=== PATIENT | female | born 1965 | race Caucasian/White ===

== ENCOUNTER 2016-10-15 10:42 | Observation (INO) | payer OTHER ==
[2016-10-15] MEDS ORDERED: SODIUM CHLORIDE 0.9% 1,000 ML IV STA ×2 (11:50→14:08)
[2016-10-15] MEDS ORDERED: MORPHINE SULFATE 4 MG/ML SYRINGE IV STA (11:50)
[2016-10-15] MEDS ORDERED: ASPIRIN 81 MG CHEW PO STA (11:50)
[2016-10-15] MEDS ORDERED: METOCLOPRAMIDE 5 MG/ML 2 ML VIAL IVP STA (11:50)
--- NOTE | 2016-10-15 12:18 | ED ---
Abdominal Pain HPI - General Source: patient, family, RN notes reviewed Mode of arrival: wheelchair Limitations: no limitations <Rhina Dickson - Last Filed: 10/15/16 14:38> <Vic Rahman - Last Filed: 10/15/16 16:06> - General Chief Complaint: Abdominal Pain Stated Complaint: vomiting x 24 hours Time Seen by Provider: 10/15/16 11:43 - History of Present Illness Initial Comments: 51-year-old female presents emergency department with chief complaint of abdominal pain nausea and vomiting. Patient states this started last night. She also having got this terrible pain she became sweaty and throughout. Patient states the pain started in her left side of her abdomen. Patient states she has a headache diarrhea. Patient went to the hospital and she was discharged home. She denies any fever or chills. They state that she was told she had gastroenteritis. Patient states that she is concerned because she just continues to have this pain and she is not feeling well so she thought that she should be seen. Patient does not see the doctor but denies any health problems. Patient denies any recent fever, chills, shortness of breath, chest pain, back pain, numbness or tingling, dysuria or hematuria, constipation or diarrhea, headaches or visual changes, or any other current symptoms. (Rhina Dickson) - Related Data Home Medications Medication Instructions Recorded Confirmed Ibuprofen [Advil] 400 mg PO DAILY 10/15/16 10/15/16 Allergies Allergy/AdvReac Type Severity Reaction Status Date / Time No Known Allergies Allergy Verified 10/15/16 12:05 Review of Systems ROS Other: All systems not noted in ROS Statement are negative. <Rhina Dickson - Last Filed: 10/15/16 14:38> ROS Other: All systems not noted in ROS Statement are negative. <Vic Rahman - Last Filed: 10/15/16 16:06> ROS Statement: Those systems with pertinent positive or pertinent negative responses have been documented in the HPI. Past Medical History History of Any Multi-Drug Resistant Organisms: None Reported Past Surgical History: No Surgical Hx Reported Past Psychological History: No Psychological Hx Reported Smoking Status: Current every day smoker Past Alcohol Use History: None Reported Past Drug Use History: None Reported <Rhina Dickson - Last Filed: 10/15/16 14:38> General Exam Limitations: no limitations <Rhina Dickson - Last Filed: 10/15/16 14:38> <Vic aRhman - Last Filed: 10/15/16 16:06> - General Exam Comments Initial Comments: General: The patient is awake and alert, in no distress, and does not appear acutely ill. Eye: Pupils are equal, round and reactive to light, extra-ocular movements are intact; there is normal conjunctiva bilaterally. No signs of icterus. Ears, nose, mouth and throat: There are moist mucous membranes and no oral lesions. Neck: The neck is supple, there is no tenderness. Cardiovascular: There is a regular rate and rhythm. No murmur, rub or gallop is appreciated. Respiratory: Lungs are clear to auscultation, respirations are non-labored, breath sounds are equal. No wheezes, stridor, rales, or rhonchi. Gastrointestinal: Soft, non-distended, quadrant tenderness of the abdomen without masses or organomegaly noted. There is no rebound or guarding present. No CVA tenderness. Bowel sounds are unremarkable. Back: There is no tenderness to palpation in the midline. There is no obvious deformity. No rashes noted. Musculoskeletal: Normal ROM, no tenderness, There is no pedal edema. There is no calf tenderness or swelling. Sensation intact. Pulses equal bilaterally 2+. Neurological: CN II-XII intact, There are no obvious motor or sensory deficits. Coordination appears grossly intact. Speech is normal. Skin: Skin is warm and dry and no rashes or lesions are noted. Psychiatric: Cooperative, appropriate mood & affect, normal judgment. (Rhina Dickson) Medical Decision Making - Lab Data Result diagrams: 10/15/16 12:00 10/15/16 12:00 - EKG Data -: EKG Interpreted by Me <Rhina Dickson - Last Filed: 10/15/16 14:38> - Lab Data Result diagrams: 10/15/16 12:00 10/15/16 12:00 <Vic Rahman - Last Filed: 10/15/16 16:06> - Medical Decision Making 51-year-old female presents to emergency room chief complaint of abdominal pain nausea vomiting. This time the patient continues to have the abdominal pain. Results returned the were reviewed. This time we will admit the patient to have her evaluated. This is discussed with the patient and family and they're in agreement. (Rhina Dickson) Medical decision making. I examine the patient at bedside. I reviewed her history. Yesterday the patient was at [facility] had a CAT scan which is nonspecific. That time white count was 16,000. The patient was discharged at noon yesterday now 24 hours later she continues to vomit with left upper quadrant discomfort. White count this time is 14.9. Urine shows positive ketones. Patient's kidneys are working well glucose 106 potassium 3.9. Patient and family reports that she had similar episode started proximal one month ago with severe left upper quadrant pain nausea vomiting in bed for 2 days and then it subsides. Patient denies any change in the color of the vomit which is bilious in color no change in color stool color of urine. Patient's bilirubin mildly elevated 1.4. Patient has discomfort with palpation to the left upper quadrant no palpable masses appreciated. Mild referred pain to the left upper quadrant. Patient be admitted for evaluation. Dr. Rahman I discussed the case with Dr. Bhakta, on-call for the [facility]. He accepts the patient for evaluation. Dr. Rahman (Vic Rahman) - Lab Data Lab Results 10/15/16 10/15/16 10/15/16 Range/Units 12:00 12:00 12:00 WBC 14.9 H (3.8-10.6) k/uL RBC 4.85 (3.80-5.40) m/uL Hgb 15.1 (11.4-16.0) gm/dL Hct 43.1 (34.0-46.0) % MCV 89.0 (80.0-100.0) fL MCH 31.2 (25.0-35.0) pg MCHC 35.1 (31.0-37.0) g/dL RDW 12.6 (11.5-15.5) % Plt Count 306 (150-450) k/uL Neutrophils % 79 % Lymphocytes % 11 % Monocytes % 7 % Eosinophils % 0 % Basophils % 0 % Neutrophils # 11.7 H (1.3-7.7) k/uL Lymphocytes # 1.7 (1.0-4.8) k/uL Monocytes # 1.1 H (0-1.0) k/uL Eosinophils # 0.0 (0-0.7) k/uL Basophils # 0.0 (0-0.2) k/uL PT (9.0-12.0) sec INR (<1.1) APTT (22.0-30.0) sec Sodium 140 (137-145) mmol/L Potassium 3.9 (3.5-5.1) mmol/L Chloride 104 (98-107) mmol/L Carbon Dioxide 22 (22-30) mmol/L Anion Gap 14 mmol/L BUN 14 (7-17) mg/dL Creatinine 0.58 (0.52-1.04) mg/dL Est GFR (MDRD) Af Amer >60 (>60 ml/min/1.73 sqM) Est GFR (MDRD) Non-Af >60 (>60 ml/min/1.73 sqM) Glucose 106 H (74-99) mg/dL Calcium 10.3 H (8.4-10.2) mg/dL Magnesium 1.6 (1.6-2.3) mg/dL Total Bilirubin 1.0 (0.2-1.3) mg/dL AST 31 (14-36) U/L ALT 27 (9-52) U/L Alkaline Phosphatase 87 (38-126) U/L Total Creatine Kinase 188 H (30-135) U/L CK-MB (CK-2) 0.9 (0.0-2.4) ng/mL CK-MB (CK-2) Rel Index 0.5 Troponin I 0.019 (0.000-0.034) ng/mL Total Protein 7.2 (6.3-8.2) g/dL Albumin 4.4 (3.5-5.0) g/dL Amylase 64 (30-110) U/L Lipase 74 (23-300) U/L Urine Color Urine Appearance (Clear) Urine pH (5.0-8.0) Ur Specific Otis (1.001-1.035) Urine Protein (Negative) Urine Glucose (UA) (Negative) Urine Ketones (Negative) Urine Blood (Negative) Urine Nitrite (Negative) Urine Bilirubin (Negative) Urine Urobilinogen (<2.0) mg/dL Ur Leukocyte Esterase (Negative) Urine RBC (0-5) /hpf Urine WBC (0-5) /hpf Ur Squamous Epith Cells (0-4) /hpf Urine Bacteria (None) /hpf Urine Mucus (None) /hpf 10/15/16 10/15/16 Range/Units 12:00 13:10 WBC (3.8-10.6) k/uL RBC (3.80-5.40) m/uL Hgb (11.4-16.0) gm/dL Hct (34.0-46.0) % MCV (80.0-100.0) fL MCH (25.0-35.0) pg MCHC (31.0-37.0) g/dL RDW (11.5-15.5) % Plt Count (150-450) k/uL Neutrophils % % Lymphocytes % % Monocytes % % Eosinophils % % Basophils % % Neutrophils # (1.3-7.7) k/uL Lymphocytes # (1.0-4.8) k/uL Monocytes # (0-1.0) k/uL Eosinophils # (0-0.7) k/uL Basophils # (0-0.2) k/uL PT 11.0 (9.0-12.0) sec INR 1.1 (<1.1) APTT 21.7 L (22.0-30.0) sec Sodium (137-145) mmol/L Potassium (3.5-5.1) mmol/L Chloride (98-107) mmol/L Carbon Dioxide (22-30) mmol/L Anion Gap mmol/L BUN (7-17) mg/dL Creatinine (0.52-1.04) mg/dL Est GFR (MDRD) Af Amer (>60 ml/min/1.73 sqM) Est GFR (MDRD) Non-Af (>60 ml/min/1.73 sqM) Glucose (74-99) mg/dL Calcium (8.4-10.2) mg/dL Magnesium (1.6-2.3) mg/dL Total Bilirubin (0.2-1.3) mg/dL AST (14-36) U/L ALT (9-52) U/L Alkaline Phosphatase (38-126) U/L Total Creatine Kinase (30-135) U/L CK-MB (CK-2) (0.0-2.4) ng/mL CK-MB (CK-2) Rel Index Troponin I (0.000-0.034) ng/mL Total Protein (6.3-8.2) g/dL Albumin (3.5-5.0) g/dL Amylase (30-110) U/L Lipase (23-300) U/L Urine Color Yellow Urine Appearance Cloudy H (Clear) Urine pH 6.0 (5.0-8.0) Ur Specific Otis 1.024 (1.001-1.035) Urine Protein 3+ H (Negative) Urine Glucose (UA) Negative (Negative) Urine Ketones 4+ H (Negative) Urine Blood Moderate H (Negative) Urine Nitrite Negative (Negative) Urine Bilirubin Negative (Negative) Urine Urobilinogen <2.0 (<2.0) mg/dL Ur Leukocyte Esterase Negative (Negative) Urine RBC 6 H (0-5) /hpf Urine WBC 8 H (0-5) /hpf Ur Squamous Epith Cells 6 H (0-4) /hpf Urine Bacteria Occasional H (None) /hpf Urine Mucus Occasional H (None) /hpf 10/15/16 12:44 normal sinus rhythm 80 bpm, normal axis, no atopy, no S-T depressions or elevations, (Rhina Dickson) Disposition Time of Disposition: 14:35 Decision Date: 10/15/16 Decision Time: 14:35 <Rhina Dickson - Last Filed: 10/15/16 14:38> <Vic Rahman - Last Filed: 10/15/16 16:06> Clinical Impression: Abdominal pain, left upper quadrant, Hypertensive urgency, Nausea, Dehydration , Leukocytosis Disposition: ADMITTED IP TO THIS [facility] Condition: Stable
[2016-10-15 12:36] LABS: Basophils % (A) 0 %; CH 30.8; CHCM 34.6; Eosinophils % (A) 0 %; HCT 43.1 % (34.0-46.0); HDW 2.37; HGB 15.1 gm/dL (11.4-16.0); Luc # (Auto) 0.27; Luc % (Auto) 2; Lymphocytes # (A) 1.7 k/uL (1.0-4.8); Lymphocytes % (A) 11 %; MCH 31.2 pg (25.0-35.0); MCHC 35.1 g/dL (31.0-37.0); Mean Platelet Volume 6.6; Monocytes # (A) 1.1 k/uL (0-1.0); Monocytes % (A) 7 %; Neutrophils # (A) 11.7 k/uL (1.3-7.7); Neutrophils % (A) 79 %; RBC 4.85 m/uL (3.80-5.40); RDW 12.6 % (11.5-15.5); WBC 14.9 k/uL (3.8-10.6); WBC (Perox) 14.98
[2016-10-15 12:43] LABS: INR 1.1 (<1.1)
[2016-10-15 12:51] LABS: ALT 27 U/L (9-52); AST 31 U/L (14-36); Alkaline Phosphatase 87 U/L (38-126); Amylase 64 U/L (30-110); Anion Gap 14 mmol/L; Blood Urea Nitrogen 14 mg/dL (7-17); Calcium 10.3 mg/dL (8.4-10.2); Carbon Dioxide 22 mmol/L (22-30); Chloride 104 mmol/L (98-107); Glucose 106 mg/dL (74-99); Magnesium 1.6 mg/dL (1.6-2.3); Non-African American GFR(MDRD) >60 (>60 ml/min/1.73 sqM); Potassium 3.9 mmol/L (3.5-5.1); Sodium 140 mmol/L (137-145); Total Protein 7.2 g/dL (6.3-8.2)
[2016-10-15 13:03] LABS: Partial Thromboplastin Time 21.7 sec (22.0-30.0)
[2016-10-15 13:14] LABS: Creatine Kinase MB 0.9 ng/mL (0.0-2.4); Troponin I 0.019 ng/mL (0.000-0.034)
[2016-10-15] MEDS ORDERED: VERAPAMIL 2.5 MG/ML 2 ML AMP IVP STA (13:50)
[2016-10-15 13:54] LABS: Appearance,Urine Cloudy (Clear); Bacteria,Urine Occasional /hpf; Bilirubin,Urine Negative (Negative); Glucose,Urine (UA) Negative (Negative); Ketones,Urine 4+ (Negative); Leukocyte Esterase,Urine Negative (Negative); Mucus,Urine Occasional /hpf; Nitrite,Urine Negative (Negative); Particle Count 13580; Protein,Urine 3+ (Negative); RBC,Urine 6 /hpf (0-5); Specific Gravity,Urine 1.024 (1.001-1.035); Squamous Epithelial Cell,Urine 6 /hpf (0-4); UA Billing (MACRO vs. MICRO) MICRO; Urobilinogen,Urine <2.0 mg/dL (<2.0); WBC,Urine 8 /hpf (0-5)
--- NOTE | 2016-10-15 14:03 | XR ---
EXAMINATION TYPE: XR chest 2V DATE OF EXAM: 10/15/2016 12:40 PM COMPARISON: NONE INDICATION: Chest pain upper abdominal pain TECHNIQUE: Single frontal view of the chest is obtained. FINDINGS: The heart size is normal. The pulmonary vasculature is normal. The lungs are clear. IMPRESSION: 1. No acute pulmonary process.
[2016-10-15] MEDS ORDERED: NALOXONE 0.4 MG/ML 1 ML VIAL IV PRN (14:35)
[2016-10-15] MEDS ORDERED: ACETAMINOPHEN TAB 325 MG TAB PO PRN (14:35)
[2016-10-15] MEDS ORDERED: HYDROmorphone 1 MG/ML 1 ML SYRINGE IV PRN (14:35)
[2016-10-15] MEDS ORDERED: hydrALAZINE HCL 20 MG/ML 1 ML VIAL IVP STA (15:28)
[2016-10-15] MEDS: SODIUM CHLORIDE 0.9% 1,000 ML IV SCH (15:34)
[2016-10-15] MEDS ORDERED: LORazepam 2 MG/ML SYRINGE IV STA (15:59)
[2016-10-15 18:11] VITALS: BMI 35.5
[2016-10-15] MEDS: IOHEXOL 350 MG/ML 25 ML BOTTLE (ORAL USE) PO PRN ×2 (18:45→19:57)
[2016-10-15] MEDS: ONDANSETRON 4 MG/2 ML VIAL IVP PRN (18:49)
[2016-10-15] MEDS: ENALAPRILAT 1.25 MG/ML 1 ML VIAL IVP PRN (18:49)
[2016-10-15] MEDS ORDERED: ALPRAZolam 0.25 MG TAB PO PRN (18:59)
[2016-10-15 19:58] LABS: Creatine Kinase MB 1.3 ng/mL (0.0-2.4); Troponin I 0.114 ng/mL (0.000-0.034)
[2016-10-15] MEDS ORDERED: ENOXAPARIN 100 MG/ML SYRINGE SQ STA (20:10)
[2016-10-15] MEDS ORDERED: TEMAZEPAM 15 MG CAP PO PRN (21:00)
--- NOTE | 2016-10-15 21:07 | CT ---
EXAMINATION TYPE: CT abdomen pelvis wo con DATE OF EXAM: 10/15/2016 8:50 PM HISTORY: abdominal pain not further specified per order. CT DLP: 911.1 mGycm. Automated Exposure Control for Dose Reduction was Utilized. TECHNIQUE: CT scan of the abdomen and pelvis is performed with oral but without IV contrast. COMPARISON: NONE FINDINGS: Within the limitations of a non-contrast study, the following observations are made. LUNG BASES: Tiny pericardial effusion is present. LIVER/GB: No significant abnormality is appreciated. PANCREAS: No significant abnormality is seen. SPLEEN: No significant abnormality is seen. ADRENALS: Some thickening to both adrenal glands may reflect benign hyperplasia. KIDNEYS: No renal stones or hydronephrosis is evident bilaterally. BOWEL: Oral contrast reaches level of the transverse colon. There is no suspicious small or large bow el dilatation seen. Normal-appearing appendix is seen from cecum in the right lower quadrant. There a re few diverticula scattered throughout the colon. There is no CT evidence for acute diverticulitis. GENITAL ORGANS: Uterus is anteverted in shape and within normal limits in size. Left ovary is felt no rmal in size on axial image 69. Right ovary is felt normal in size posteriorly on axial image 75. Ind istinct from the superior margin of right uterus there is exophytic projection on image 78 felt to re flect approximately 5 cm subserosal fibroid. This can be confirmed with pelvic ultrasound if desired. LYMPH NODES: No greater than 1cm abdominal or pelvic lymph nodes are appreciated. OSSEOUS STRUCTURES: Mild facet degenerative changes lower lumbar levels are present. OTHER: No signif icant additional abnormality is seen. IMPRESSION: No significant acute finding is seen to account for patient's symptoms.
[2016-10-15] MEDS: PANTOPRAZOLE 40 MG/10 ML VIAL IVP SCH (21:16)
[2016-10-16 00:43] LABS: Creatine Kinase MB 1.4 ng/mL (0.0-2.4)
[2016-10-16] MEDS: SODIUM CHLORIDE 0.9% 1,000 ML IV SCH ×2 (00:45→08:48)
[2016-10-16 07:12] LABS: Basophils % (A) 0 %; CH 30.3; CHCM 33.7; Eosinophils % (A) 0 %; HCT 41.5 % (34.0-46.0); HDW 2.32; Luc # (Auto) 0.34; Luc % (Auto) 3; Lymphocytes # (A) 2.5 k/uL (1.0-4.8); Lymphocytes % (A) 22 %; MCH 30.5 pg (25.0-35.0); MCHC 33.8 g/dL (31.0-37.0); MCV 90.2 fL (80.0-100.0); Mean Platelet Volume 6.5; Monocytes % (A) 9 %; Neutrophils # (A) 7.6 k/uL (1.3-7.7); Neutrophils % (A) 66 %; RBC 4.61 m/uL (3.80-5.40); RDW 12.6 % (11.5-15.5); WBC 11.5 k/uL (3.8-10.6); WBC (Perox) 11.54
[2016-10-16 07:36] LABS: ALT 30 U/L (9-52); AST 24 U/L (14-36); Alkaline Phosphatase 73 U/L (38-126); Anion Gap 11 mmol/L; Blood Urea Nitrogen 16 mg/dL (7-17); Calcium 9.8 mg/dL (8.4-10.2); Carbon Dioxide 23 mmol/L (22-30); Chloride 105 mmol/L (98-107); Glucose 93 mg/dL (74-99); Non-African American GFR(MDRD) >60 (>60 ml/min/1.73 sqM); Potassium 3.7 mmol/L (3.5-5.1); Sodium 139 mmol/L (137-145); Total Bilirubin 0.9 mg/dL (0.2-1.3); Total Protein 6.2 g/dL (6.3-8.2)
--- NOTE | 2016-10-16 08:01 | HP ---
DATE OF ADMISSION: DATE OF SERVICE: 10/15/2016 Chief complaints are abdominal pain and vomiting. HISTORY OF PRESENT ILLNESS: This 51-year-old woman with a past medical history of no significant medical issues being followed with no primary physician apparently living in [facility]. The patient was visiting her mother, who is living in [place]. The patient started vomiting about a month ago. Patient apparently had multiple episodes of vomiting and some diarrhea also. The patient went to [facility] and multiple evaluations with CAT scan did not show any acute abnormality. The patient was thought to have acute gastroenteritis., but the patient continued with nausea, vomiting and last night also patient was unable to keep anything down. The patient was sweaty and patient had some diarrhea. Because of multiple complex medical issues, the patient was taken to [facility] and admitted for further evaluation and treatment. There is no history of any fever, rigors or seizures. No history of headache, loss of consciousness or seizures. Admission labs showed WBC 14.9 and calcium was 10.3. UA shows 4+ ketones. Chest x-ray was done on admission, which showed no acute abnormality. EKG showed normal sinus rhythm. On admission, the patient had elevated blood pressure for which hydralazine was given, which probably resulted in allergic reaction according to the staff. The patient was admitted for further evaluation and treatment. There is no history of any fever, rigors, chills. NO history of headache, loss of consciousness or seizures. PAST MEDICAL HISTORY: No history of significant medical issues. MEDICATIONS: Ibuprofen 400 daily. ALLERGIES: HYDRALAZINE. FAMILY HISTORY: No history of heart disease or strokes in the family. SOCIAL HISTORY: Patient works as housecleaning. Smoking on a daily. Occasional alcohol intake. REVIEW OF SYSTEMS: ENT: No diminishing hearing or diminished vision. CARDIOVASCULAR: No angina. RESPIRATORY: No cough or hemoptysis. GI: As mentioned earlier. : No dysuria. NERVOUS SYSTEM: No numbness or weakness. ALLERGIES/IMMUNOLOGY: No asthma. MUSCULOSKELETAL: As mentioned earlier. HEMATOLOGY/ONCOLOGY: No history of anemia. ENDOCRINE: No history of diabetes or hypothyroidism. CONSTITUTIONAL: As mentioned earlier. DERMATOLOGY: Negative. RHEUMATOLOGY: Negatived. PSYCHIATRY: As mentioned earlier. PHYSICAL EXAMINATION: The patient is alert and oriented x3. The pulse is 133, blood pressure 177/72, respirations 15, temperature 99.3, pulse ox 95% on 2 L. HEENT: Conjunctivae normal. Oral mucosa moist. NECK: No jugular venous distention. No carotid bruit. No lymph node enlargement. CARDIOVASCULAR: S1 and S2, muffled. No S3, no S4. RESPIRATORY: Breath sounds diminished at the bases. No rhonchi, no crackles. ABDOMEN: Soft, mild diffuse discomfort to palpation, otherwise, obese, no mass palpable. No hepatosplenomegaly. No ascites. LEGS: No edema, no swelling. NERVOUS SYSTEM: Higher functions as mentioned. Moves all 4 limbs. No motor or sensory deficits LYMPHATICS: No lymphadenopathy of neck, axillae or groin. SKIN: No ulcers, rashes or bleeding. Labs are at this time WBC 14.9. INR is 1.1. Glucose 106. Calcium is 10.3. UA noted. ASSESSMENT: 1. Abdominal pain, nausea, possible acute gastritis and gastroenteritis. 2. Accelerated hypertension and hypertensive urgency. 3. Increased WBC, possibly reactive. 4. Hypercalcemia. 5. Dehydration. 6. Increased creatine kinase. 7. Rule out urinary tract infection. 8. History of nicotine dependence. 9. Obesity, body mass index of 34.5. 10. FULL CODE. RECOMMENDATIONS AND DISCUSSION: This 51-year-old woman who presented with multiple complex medical issues, will monitor the patient closely. Continue the current medications. Continue symptomatic treatment. Will keep the patient on clear liquids, Protonix IV b.i.d. otherwise, symptomatic treatment. has been given and Norvasc will be started on p.o. basis Other than that, I will also recommend repeat CAT scan of the abdomen and pelvis and continue to monitor. Otherwise, because of persistent symptoms, surgery has been consulted. Guarded prognosis because of multiple complex medical issues. Further recommendations to follow. Repeat labs are arranged. Will obtain the cultures and continue to monitor as well. DVT prophylaxis. Discussed with the patient, understands and agrees. JOMAR
[2016-10-16] MEDS: HYDROmorphone 1 MG/ML 1 ML SYRINGE IV PRN ×2 (08:46→13:20)
[2016-10-16] MEDS: ONDANSETRON 4 MG/2 ML VIAL IVP PRN ×2 (08:46→16:42)
[2016-10-16] MEDS: PANTOPRAZOLE 40 MG/10 ML VIAL IVP SCH ×2 (08:50→20:05)
[2016-10-16] MEDS ORDERED: amLODIPine 2.5 MG TAB PO SCH (09:00)
[2016-10-16] MEDS: ENALAPRILAT 1.25 MG/ML 1 ML VIAL IVP PRN ×2 (09:04→16:43)
[2016-10-16] MEDS ORDERED: amLODIPine 2.5 MG TAB PO ONE ×2 (12:30→13:30)
[2016-10-16] MEDS ORDERED: SODIUM CHLORIDE 0.9% 1,000 ML IV SCH (12:45)
[2016-10-16] MEDS: METOPROLOL TARTRATE 50 MG TAB PO SCH (13:17)
--- NOTE | 2016-10-16 13:36 | P.GSCN ---
History of Present Illness Consult date: 10/16/16 Reason for Consult: Abdominal pain History of present illness: The patient states that she has had mild left upper quadrant crampy abdominal pain. She just had a bowel movement and is passing flatus. She states her pain is 8 out of 10. Review of Systems - Constitutional Reports as per HPI Past Medical History Past Medical History: No Reported History History of Any Multi-Drug Resistant Organisms: None Reported Past Surgical History: No Surgical Hx Reported Past Psychological History: No Psychological Hx Reported Smoking Status: Current every day smoker Past Alcohol Use History: None Reported Past Drug Use History: None Reported - Past Family History Father Family Medical History: No Reported History Mother Family Medical History: No Reported History Medications and Allergies Home Medications Medication Instructions Recorded Confirmed Type Ibuprofen [Advil] 400 mg PO DAILY 10/15/16 10/15/16 History Allergies Allergy/AdvReac Type Severity Reaction Status Date / Time hydralazine AdvReac Rapid Verified 10/15/16 17:23 Heart Rate Surgical - Exam Vital Signs Temp Pulse Resp BP Pulse Ox 98.8 F 84 16 221/83 99 10/15/16 11:28 10/15/16 11:28 10/15/16 11:28 10/15/16 11:28 10/15/16 11:28 - General well developed, no distress - Eyes PERRL - ENT normal pinna - Neck no masses - Respiratory normal expansion - Cardiovascular Rhythm: regular - Abdomen Abdomen soft. There is minimal left upper quadrant pain. There is no rebound or guarding. Abdomen: soft Results - Labs 10/16/16 06:22 10/16/16 06:22 Abnormal Lab Results - Last 24 Hours (Table) 10/15/16 10/15/16 10/16/16 Range/Units 19:01 23:52 05:40 WBC (3.8-10.6) k/uL Total Creatine Kinase 186 H 146 H (30-135) U/L Troponin I 0.114 H* (0.000-0.034) ng/mL Total Protein (6.3-8.2) g/dL U Cannabinoids Screen Positive H (Negative) ng/mL 10/16/16 10/16/16 10/16/16 Range/Units 06:22 06:22 06:22 WBC 11.5 H (3.8-10.6) k/uL Total Creatine Kinase (30-135) U/L Troponin I 0.112 H* (0.000-0.034) ng/mL Total Protein 6.2 L (6.3-8.2) g/dL U Cannabinoids Screen (Negative) ng/mL Diabetes panel 10/16/16 Range/Units 06:22 Sodium 139 (137-145) mmol/L Potassium 3.7 (3.5-5.1) mmol/L Chloride 105 (98-107) mmol/L Carbon Dioxide 23 (22-30) mmol/L BUN 16 (7-17) mg/dL Creatinine 0.66 (0.52-1.04) mg/dL Glucose 93 (74-99) mg/dL Calcium 9.8 (8.4-10.2) mg/dL AST 24 (14-36) U/L ALT 30 (9-52) U/L Alkaline Phosphatase 73 (38-126) U/L Total Protein 6.2 L (6.3-8.2) g/dL Albumin 3.7 (3.5-5.0) g/dL Calcium panel 10/16/16 Range/Units 06:22 Calcium 9.8 (8.4-10.2) mg/dL Albumin 3.7 (3.5-5.0) g/dL Pituitary panel 10/16/16 Range/Units 06:22 Sodium 139 (137-145) mmol/L Potassium 3.7 (3.5-5.1) mmol/L Chloride 105 (98-107) mmol/L Carbon Dioxide 23 (22-30) mmol/L BUN 16 (7-17) mg/dL Creatinine 0.66 (0.52-1.04) mg/dL Glucose 93 (74-99) mg/dL Calcium 9.8 (8.4-10.2) mg/dL Adrenal panel 10/16/16 Range/Units 06:22 Sodium 139 (137-145) mmol/L Potassium 3.7 (3.5-5.1) mmol/L Chloride 105 (98-107) mmol/L Carbon Dioxide 23 (22-30) mmol/L BUN 16 (7-17) mg/dL Creatinine 0.66 (0.52-1.04) mg/dL Glucose 93 (74-99) mg/dL Calcium 9.8 (8.4-10.2) mg/dL Total Bilirubin 0.9 (0.2-1.3) mg/dL AST 24 (14-36) U/L ALT 30 (9-52) U/L Alkaline Phosphatase 73 (38-126) U/L Total Protein 6.2 L (6.3-8.2) g/dL Albumin 3.7 (3.5-5.0) g/dL Assessment and Plan Plan: The patient's CAT scan is within normal in its. She has some mild left upper quadrant pain. The patient be observed. Hopefully after her bowel movement her pain is improved. We will follow with you
--- NOTE | 2016-10-16 14:04 | P.CRDCN ---
History of Present Illness Consult date: 10/16/16 Requesting physician: Verónica Bhakta Consult reason: hypertension Chief complaint: Abdominal pain and vomiting History of present illness: This is a 51-year-old female admitted to the hospital with symptoms of persistent nausea vomiting and abdominal discomfort. Apparently the patient had been at [facility] with similar symptoms, a CT of the abdomen had been performed there which did not reveal any significant findings. This information was collected from the patient and her family. We will get records from [facility]. Cardiology consultation was requested because of uncontrolled hypertension as well as mild troponin abnormality. Patient denies having any chest discomfort. Chest x-ray did not reveal any acute pulmonary process. EKG shows normal sinus rhythm with no acute changes. CAT scan of the abdomen and pelvis performed here did not reveal any significant acute findings. Laboratory data was reviewed, white blood cell count on admission 14.9, 11.5 this morning. Hemoglobin 14.0, potassium 3.7, BUN 16, creatinine 0.6. Troponins 0.019, 0.114, 0.112. Urine screen is positive for cannabinoids. Serum alcohol level less than 10 influenza A and B- . I pressure on arrival to the emergency room 221/83 with a heart rate in the 80s, 99% on room air. Blood pressure this morning 190/100 with a heart rate in the 80s. At the time of our examination, patient continues to complain of abdominal discomfort, continues to have vomiting. He is currently waiting to be evaluated by surgical services. Past Medical History Past Medical History: No Reported History History of Any Multi-Drug Resistant Organisms: None Reported Past Surgical History: No Surgical Hx Reported Past Psychological History: No Psychological Hx Reported Smoking Status: Current every day smoker Past Alcohol Use History: None Reported Past Drug Use History: None Reported - Past Family History Father Family Medical History: No Reported History Mother Family Medical History: No Reported History Medications and Allergies Home Medications Medication Instructions Recorded Confirmed Type Ibuprofen [Advil] 400 mg PO DAILY 10/15/16 10/15/16 History Allergies Allergy/AdvReac Type Severity Reaction Status Date / Time hydralazine AdvReac Rapid Verified 10/15/16 17:23 Heart Rate Physical Exam Vitals: Vital Signs Temp Pulse Pulse Resp BP BP Pulse Ox 10/16/16 10:39 190/100 10/16/16 08:00 99.0 F 81 16 220/108 95 10/16/16 04:00 98.3 F 99 16 144/72 98 10/16/16 00:00 98.4 F 100 16 109/58 96 10/15/16 21:04 98.7 F 124 H 16 176/83 96 10/15/16 18:08 98 F 120 H 17 177/80 98 10/15/16 17:49 99.5 F 127 H 16 185/88 97 10/15/16 17:12 138 H 14 179/84 96 10/15/16 16:45 99.3 F 133 H 15 177/72 95 10/15/16 16:30 134 H 16 184/83 96 10/15/16 15:55 114 H 16 183/83 96 10/15/16 15:40 199/92 10/15/16 15:22 84 16 201/83 98 Intake and Output 10/15/16 10/16/16 10/16/16 22:59 06:59 14:59 Intake Total 400 Output Total 200 1000 Balance -200 -600 Intake: Oral 400 Output: Urine 200 1000 Other: Voiding Method Toilet Toilet # Voids 1 # Bowel Movements 0 Weight 99.8 kg 94.6 kg PHYSICAL EXAMINATION: HEENT: Head is atraumatic, normocephalic. Pupils equal, round. Neck is supple. There is no elevated jugular venous pressure. HEART EXAMINATION: Heart S1, S2 normal. No murmur or gallop heard. CHEST EXAMINATION: Lungs are clear to auscultation and precussion. No chest wall tenderness is noted on palpation or with deep breathing. ABDOMEN: Soft, positive left mid and left upper quadrant tenderness on palpation .Bowel sounds are heard. No organomegaly noted. EXTREMITIES: 2+ peripheral pulses with no evidence of peripheral edema and no calf tenderness noted. NEUROLOGIC patient is awake, alert and oriented -3. . Results 10/16/16 06:22 10/16/16 06:22 Cardiac Enzymes 10/15/16 10/15/16 10/16/16 Range/Units 19:01 23:52 06:22 AST 24 (14-36) U/L CK-MB (CK-2) 1.3 1.4 (0.0-2.4) ng/mL Troponin I 0.114 H* (0.000-0.034) ng/mL 10/16/16 Range/Units 06:22 AST (14-36) U/L CK-MB (CK-2) (0.0-2.4) ng/mL Troponin I 0.112 H* (0.000-0.034) ng/mL CBC 10/16/16 Range/Units 06:22 WBC 11.5 H (3.8-10.6) k/uL RBC 4.61 (3.80-5.40) m/uL Hgb 14.0 (11.4-16.0) gm/dL Hct 41.5 (34.0-46.0) % Plt Count 264 (150-450) k/uL Comprehensive Metabolic Panel 10/16/16 Range/Units 06:22 Sodium 139 (137-145) mmol/L Potassium 3.7 (3.5-5.1) mmol/L Chloride 105 (98-107) mmol/L Carbon Dioxide 23 (22-30) mmol/L BUN 16 (7-17) mg/dL Creatinine 0.66 (0.52-1.04) mg/dL Glucose 93 (74-99) mg/dL Calcium 9.8 (8.4-10.2) mg/dL AST 24 (14-36) U/L ALT 30 (9-52) U/L Alkaline Phosphatase 73 (38-126) U/L Total Protein 6.2 L (6.3-8.2) g/dL Albumin 3.7 (3.5-5.0) g/dL Current Medications Generic Name Dose Route Start Last Admin Trade Name Freq PRN Reason Stop Dose Admin Acetaminophen 650 mg 10/15/16 14:35 10/15/16 21:17 Tylenol Tab PO 650 mg Q6HR PRN Administration Mild Pain or Fever > 100.5 Hydrocodone Bitart/Acetaminophen 1 each 10/15/16 14:35 [place] 5-325 PO Q4HR PRN Moderate Pain Alprazolam 0.25 mg 10/15/16 18:59 Xanax PO TID PRN Anxiety Amlodipine Besylate 5 mg 10/16/16 21:00 Norvasc PO BID GUERO Aspirin 81 mg 10/17/16 09:00 Aspirin PO DAILY GUERO Enalaprilat 1.25 mg 10/15/16 15:59 10/16/16 09:04 Vasotec IVP 1.25 mg Q6HR PRN Administration Systolic BP > 160 Hydromorphone HCl 0.5 mg 10/15/16 19:00 10/16/16 13:20 Dilaudid IV 0.5 mg Q3HR PRN Administration Severe Pain Sodium Chloride 1,000 mls @ 50 mls/hr 10/16/16 12:45 10/16/16 13:29 Saline 0.9% IV Not Given .Q20H GUERO Iohexol 25 ml 10/15/16 18:24 10/15/16 19:57 Omnipaque 350 Mg/Ml (For Oral Use) PO 10/16/16 18:25 25 ml Q60M PRN Administration CT Scan Metoprolol Tartrate 50 mg 10/16/16 12:45 10/16/16 13:17 Lopressor PO 50 mg DAILY GUERO Administration Naloxone HCl 0.2 mg 10/15/16 14:35 Narcan IV Q2M PRN Opioid Reversal Ondansetron HCl 4 mg 10/15/16 14:35 10/16/16 08:46 Zofran IVP 4 mg Q8HR PRN Administration Nausea And Vomiting Pantoprazole Sodium 40 mg 10/15/16 21:00 10/16/16 08:50 Protonix IVP 40 mg BID GUERO Administration Temazepam 15 mg 10/15/16 21:00 Restoril PO HS PRN Insomnia Intake and Output 10/15/16 10/16/16 10/16/16 22:59 06:59 14:59 Intake Total 400 Output Total 200 1000 Balance -200 -600 Intake: Oral 400 Output: Urine 200 1000 Other: Voiding Method Toilet Toilet # Voids 1 # Bowel Movements 0 Weight 99.8 kg 94.6 kg 10/16/16 06:22 10/16/16 06:22 EKG Interpretations (text) EKG shows a normal sinus rhythm with no acute changes. Assessment and Plan Plan: Assessment and plan #1 abdominal pain with persistent nausea and vomiting #2 uncontrolled hypertension #3 abnormal troponins, 0.019, 0.114, 0.112. Not suggestive of acute coronary syndrome. Patient denies having any discomfort in her chest. EKG shows normal sinus rhythm with no acute changes. #4 nicotine dependence Plan We will obtain an echocardiogram with Doppler study. We will also request a repeat troponin be performed. Medication adjustments will be made to optimize patient's blood pressure. EKG in a.m. Further recommendations will follow. DNP note has been reviewed, I agree with a documented findings and plan of care. Patient was seen and examined.
[2016-10-16] MEDS: HYDROcodone/APAP 5-325MG 1 EACH TAB PO PRN ×2 (16:32→22:57)
[2016-10-16] MEDS: amLODIPine 5 MG TAB PO SCH (20:06)
--- NOTE | 2016-10-16 21:35 | PN ---
DATE OF SERVICE: 10/16/2016 This 51-year-old woman who was admitted with severe abdominal pain, vomiting is being closely monitored. CT scan did not show acute abnormality. The troponins have been elevated up to 0.112. Patient also seen by surgery who recommended continued follow-up. Cardiology also seen the patient and also recommended continued follow-up. Past medical history reviewed. REVIEW OF SYSTEMS: CARDIOVASCULAR: As mentioned earlier. RESPIRATORY: As mentioned earlier. GI: No nausea or vomiting. GENITOURINARY: No dysuria. CENTRAL NERVOUS SYSTEM: No numbness or weakness. Current medications are reviewed and include: 1. Tylenol 650 q.6 p.r.n. 2. [place] 5 mg. 3. Xanax. 4. Norvasc 10 mg. 5. Aspirin 81 mg. 7. Dilaudid. 8. Omeprazole. 9. Narcan. 10. Zofran. 11. Protonix. PHYSICAL EXAMINATION: Patient is alert and oriented times three. Pulse 81, blood pressure 220/108, respiratory rate 16, temperature 99 degrees. Pulse ox 94% on room air. HEENT: Conjunctivae normal. Oral mucosa moist. NECK: No jugular venous distention. No lymphadenopathy. No carotid bruit. CARDIOVASCULAR: S1, S2 muffled. RESPIRATORY: Breath sounds diminished in the bases. A few scattered rhonchi and crackles. ABDOMEN: Soft. Mild diffuse tenderness in the upper abdomen. LEGS: No edema. No swelling. CENTRAL NERVOUS SYSTEM: No focal deficits. LABS: WBC 7.5. Troponin 0.112. The urine drug screen is positive for THC. Influenza negative. ASSESSMENT: 1. Abdominal pain, nausea, possible acute gastroenteritis. 2. Accelerated hypertension, hypertensive urgency. 3. Troponin 0.114, indeterminate etiology. 4. Increased WBC, possibly reactive. 5. Hypercalcemia. 6. Dehydration. 7. Positive THC. 8. Increased creatinine kinase. 9. Rule out urinary tract infection. 10. History of nicotine dependence. 11. Obesity body mass index 34.5. 12. FULL CODE. RECOMMENDATION: Recommend to continue current medications. Continue with monitoring. Symptomatic treatment. Otherwise, at this time, I would recommend continuing symptomatic treatment. Closely follow with multiple consultants. Prognosis guarded. Cardiology input appreciated. CAT scan was noted. Further recommendations to follow. We will also obtain a 2-D echo with Doppler for completion of work-up and surgery is also following the patient closely. Further recommendations to follow. MTDD
[2016-10-17 06:48] LABS: Basophils % (A) 0 %; CH 30.8; CHCM 34.2; Eosinophils % (A) 0 %; HCT 43.1 % (34.0-46.0); HDW 2.37; HGB 14.3 gm/dL (11.4-16.0); Luc # (Auto) 0.26; Luc % (Auto) 2; Lymphocytes # (A) 2.1 k/uL (1.0-4.8); Lymphocytes % (A) 19 %; MCH 29.9 pg (25.0-35.0); MCHC 33.2 g/dL (31.0-37.0); MCV 90.2 fL (80.0-100.0); Mean Platelet Volume 6.7; Monocytes % (A) 9 %; Neutrophils # (A) 7.4 k/uL (1.3-7.7); Neutrophils % (A) 68 %; RBC 4.77 m/uL (3.80-5.40); RDW 12.9 % (11.5-15.5); WBC 10.8 k/uL (3.8-10.6); WBC (Perox) 10.57
[2016-10-17 07:01] LABS: Anion Gap 12 mmol/L; Blood Urea Nitrogen 14 mg/dL (7-17); Calcium 10.1 mg/dL (8.4-10.2); Carbon Dioxide 23 mmol/L (22-30); Chloride 105 mmol/L (98-107); Glucose 105 mg/dL (74-99); Non-African American GFR(MDRD) >60 (>60 ml/min/1.73 sqM); Potassium 3.4 mmol/L (3.5-5.1); Sodium 140 mmol/L (137-145)
[2016-10-17] MEDS: PANTOPRAZOLE 40 MG/10 ML VIAL IVP SCH (08:11)
[2016-10-17] MEDS: amLODIPine 5 MG TAB PO SCH (08:11)
[2016-10-17] MEDS: METOPROLOL TARTRATE 50 MG TAB PO SCH (08:11)
[2016-10-17 08:20] VITALS: RESP 20
[2016-10-17] MEDS ORDERED: ASPIRIN 81 MG CHEW PO SCH (09:00)
[2016-10-17] MEDS ORDERED: amLODIPine 10 MG TAB PO SCH (09:00)
--- NOTE | 2016-10-17 09:01 | CONS ---
DATE OF CONSULTATION: This is a 51-year-old lady who has been admitted to the hospital with recurrent nausea, vomiting, small amounts for the past 5 days, feeling weak, tired, and complaining of abdominal pain. Incidentally, her troponin was up at 1.112 and 0.068. I was asked to see her in this regard. At the time of my evaluation, she is still nauseated, and a bit frustrated that her nausea is not gone. She does not have chest pain, abdominal pain is in the mid abdomen, sometimes in the left upper quadrant area. Pain seems to persist. There is also some tenderness. Surgical consult has been sought. She has no evidence of any chest pain. She has no palpitations or syncope. She remains in sinus rhythm.
--- NOTE | 2016-10-17 10:02 | ECHOF ---
Referral Reason:htn MEASUREMENTS -------- HEIGHT: 167.6 cm WEIGHT: 94.3 kg BP: 190/100 RVIDd: 2.7 cm (< 3.3) IVSd: 1.3 cm (0.6 - 1.1) LVIDd: 4.2 cm (3.9 - 5.3) LVPWd: 1.3 cm (0.6 - 1.1) IVSs: 1.7 cm LVIDs: 2.8 cm LVPWs: 1.9 cm LA Diam: 2.7 cm (2.7 - 3.8) LAESV Index (A-L): 22.17 ml/m Ao Diam: 2.8 cm (2.0 - 3.7) AV Cusp: 2.2 cm (1.5 - 2.6) LA Diam: 2.8 cm (2.7 - 3.8) MV EXCURSION: 10.759 mm (> 18.000) MV EF SLOPE: 75 mm/s (70 - 150) EPSS: 0.3 cm MV E Ryan: 0.87 m/s MV DecT: 264 ms MV A Ryan: 0.68 m/s MV E/A Ratio: 1.30 RAP: 5.00 mmHg RVSP: 29.09 mmHg FINDINGS -------- Sinus rhythm. This was a technically good study. There is mild concentric left ventricular hypertrophy. Overall left ventricular systolic function is normal with, an EF between 55 - 60 %. The right ventricle is normal in size. Normal LA size by volume 22+/-6 ml/m2. The right atrium is normal in size. The aortic valve is trileaflet and appears structurally normal. Mild mitral annular calcification present. Mild mitral regurgitation is present. Mild tricuspid regurgitation present. Right ventricular systolic pressure is normal at < 35 mmHg. Pulmonic valve appears structurally normal. The aortic root size is normal. Normal inferior vena cava with normal inspiratory collapse consistent with estimated right atrial pressure of 5 mmHg. There is a trivial pericardial effusion present. CONCLUSIONS -------- 1. Sinus rhythm. 2. Mild mitral regurgitation is present. 3. Mild tricuspid regurgitation present. 4. Right ventricular systolic pressure is normal at < 35 mmHg. 5. Pulmonic valve appears structurally normal. 6. The aortic root size is normal. 7. Normal inferior vena cava with normal inspiratory collapse consistent with estimated right atrial pressure of 5 mmHg. 8. There is a trivial pericardial effusion present. 9. This was a technically good study. 10. There is mild concentric left ventricular hypertrophy. 11. Overall left ventricular systolic function is normal with, an EF between 55 - 60 %. 12. The right ventricle is normal in size. 13. Normal LA size by volume 22+/-6 ml/m2. 14. The right atrium is normal in size. 15. The aortic valve is trileaflet and appears structurally normal. 16. Mild mitral annular calcification present. SOFTWARE TEAM LEADER: Rosaura Feliz RDCS
[2016-10-17 11:34] VITALS: BP 141/72; PULSE 78; TEMP 98.4
--- NOTE | 2016-10-18 07:46 | DS ---
DATE OF ADMISSION: 10/15/2016 DATE OF DISCHARGE: 10/17/2016 This is a 51-year-old who came in with epigastric abdominal pain and nausea probably related to gastritis. Patient takes Advil and Motrin for back pain. Because of her nausea and vomiting, she says her blood pressure is elevated. Patient has minimally elevated Troponin not suggestive of acute coronary syndrome. Cardiology evaluated the patient. No chest pain. Norvasc was added and patient will be discharged on 5 mg of Norvasc. Patient may be hypertensive. Patient's blood pressures are doing very well with Norvasc. Patient was extensively counseled regarding appropriate way of checking blood pressure. This patient was seen and examined on the day of discharge. Vitals are stable. PHYSICAL EXAMINATION: GENERAL: The patient is alert and oriented x3, not in any acute distress. Well developed, well nourished. HEENT: Pupils are round and equally reacting to light. EOMI. No scleral icterus. No conjunctival pallor. Normocephalic, atraumatic. No pharyngeal erythema. No thyromegaly. CARDIOVASCULAR: S1 and S2 present. No murmurs, rubs, or gallops. PULMONARY: Chest is clear to auscultation, no wheezing or crackles. ABDOMEN: Soft, nontender, nondistended, normoactive bowel sounds. No palpable organomegaly. MUSCULOSKELETAL: No joint swelling or deformity. EXTREMITIES: No cyanosis, clubbing, or pedal edema. NEUROLOGICAL: Gross neurological examination did not reveal any focal deficits. SKIN: No rashes. FINAL DIAGNOSES: 1. Abdominal pain, probably due to gastritis or peptic ulcer disease along with nausea. 2. Hypertensive urgency or accelerated hypertension. 3. Minimally elevated troponin, not indicative of coronary artery disease. Cardiology evaluated the patient. 4. Leukocytosis, reactive. 5. Marijuana use, counseling was provided. The patient will be discharged today. Cardiac diet. Please refer to my depart summary for details of discharge medication. Patient will follow with his physician outside of town in 3 to 7 days. Spent greater than 35 minutes in total discharge process.
== END 2016-10-17 12:59 | disposition home or self-care (01) ==
LOC: EC 10:42 → INTOOBSV 14:42 → OBSVTOIN 14:42 → 3OBS 14:42 → 6SEL 17:40
PROVIDERS: ADMIT Hospitalist; ATTEND Hospitalist
DX: R10.12 Left upper quadrant pain (principal); R11.0 Nausea; I16.0 Hypertensive urgency; E83.52 Hypercalcemia; E86.0 Dehydration; R74.8 Abnormal levels of other serum enzymes; E66.9 Obesity, unspecified; F12.90 Cannabis use, unspecified, uncomplicated; F17.200 Nicotine dependence, unspecified, uncomplicated; I10 Essential (primary) hypertension; Z68.34 Body mass index [BMI] 34.0-34.9, adult; Z79.1 Long term (current) use of non-steroidal anti-inflammatories (NSAID); Z79.82 Long term (current) use of aspirin; Z79.899 Other long term (current) drug therapy
CPT/HCPCS: 96361 ×3; 96365; 96366; 96375; 99285; 36415; 93005; 93306; 80053 ×2; 80048; 82150; 82550; 82553; 83690; 83735; 84484 ×3; 85025 ×3; 85610; 85730; 81001; 87040; 80306 ×2; 80320; 87086; 87502; 71020; 74176; G0378 ×3; J2060; J2270; J0360; J2765; J2405 ×2; J1650; J1170; C9113 ×3